=== PATIENT | female | born 1995 | race Caucasian/White ===

== ENCOUNTER → 2017-02-15 | Outpatient (CLI) | payer MEDICARE, MEDICAID ==
[~2017-02-15] MED LIST: BACTRIM DS 8001 TA1 PO
[2017-02-15 13:41] LABS: HEMOGLOBIN 14.3 g/dL (12.2-16.2); LYMPH # 1.8 K/mm3 (0.7-4.5)
[2017-02-15 15:16] LABS: URINE BILIRUBIN - DIPSTICK NEGATIVE (NEG); URINE BLOOD NEGATIVE (NEG)
[2017-02-15 15:41] LABS: BUN 16 mg/dL (7-18)
[2017-02-15 16:39] LABS: GFR (ESTIMATED) 69 ML/MIN (59-)
== END ==
LOC: CARL-LAB 10:27
PROVIDERS: Internal Medicine Nephrology
DX: N18.9 Chronic kidney disease, unspecified (principal); Z79.899 Other long term (current) drug therapy; Z94.0 Kidney transplant status